=== PATIENT | male | born 1960 | race Caucasian/White ===

== ENCOUNTER 2017-01-06 01:59 | Emergency (ER) | payer OTHER ==
--- NOTE | 2017-01-06 02:44 | Emergency Department Record ---
History of Present Illness - General Chief Complaint: Cough Stated Complaint: "I THINK I HAVE BRONCHITIS" Time Seen by Provider: 01/06/17 02:26 Source: Patient Mode of Arrival: Ambulatory Limitations: No limitations - History of Present Illness Initial Comments: pt has productive green cough. has been sick with the same. no fevers. MD Complaint: Cough, Nasal congestion, Rhinorrhea Onset/Timin -: Days(s) Consistency: Getting worse Worsens With: Deep breaths Context: Sick contacts Treatments Prior to Arrival: None - Related Data Home Medications Medication Instructions Recorded Confirmed Last Taken Multivitamin [Multi-Vitamin Daily] 1 each PO DAILY tab 05/21/16 01/06/17 [place]-3 Fatty Acids/Fish Oil 1 each PO DAILY cap 05/21/16 01/06/17 01/05/17 [[place] 3 Fish Oil Softgel] Previous Rx's Medication Instructions Recorded Acetaminophen with Codeine 5 ml PO QHS #60 solution 01/06/17 [Acetaminop-Codeine 120-12 mg/5] Azithromycin [Zithromax] 250 mg PO DAILY #4 tab 01/06/17 Allergies Allergy/AdvReac Type Severity Reaction Status Date / Time No Known Allergies Allergy Unverified 11/17/16 10:19 Travel Screening - Travel/Exposure Within Last 30 Days Have you traveled within the last 30 days?: No - Travel/Exposure Within Last Year Have you traveled outside the [place] in the last year?: No - Additonal Travel Details Have you been exposed to anyone with a communicable illness?: Yes Exposure Details:: bronchitis - Travel Symptoms Symptom Screening: None Review of Systems Reviewed: No additional complaints except as noted below Constitutional: Reports: As per HPI. Denies: Chills, Fever, Malaise, Night sweats, Weakness, Weight change Eyes: Reports: As per HPI. Denies: Eye discharge, Eye pain, Photophobia, Vision change ENT: Reports: As per HPI. Denies: Congestion, Dental pain, Ear pain, Epistaxis , Hearing loss, Throat pain Respiratory: Reports: As per HPI. Denies: Cough, Dyspnea, Hemoptysis, Stridor, Wheezes Cardiovascular: Reports: As per HPI. Denies: Arrhythmia, Chest pain, Dyspnea on exertion, Edema, Murmurs, Orthopnea, Palpitations, Paroxysmal nocturnal dyspnea, Rheumatic Fever, Syncope Endocrine: Reports: As per HPI. Denies: Fatigue, Heat or cold intolerance, Polydipsia, Polyuria Gastrointestinal: Reports: As per HPI. Denies: Abdominal pain, Constipation, Diarrhea, Hematemesis, Hematochezia, Melena, Nausea, Vomiting Genitourinary: Reports: As per HPI. Denies: Dysuria, Frequency, Hematuria, Incontinence, Retention, Testicular pain, Testicular mass, Urgency Musculoskeletal: Reports: As per HPI. Denies: Arthralgia, Back pain, Gout, Joint swelling, Myalgia, Neck pain Skin: Reports: As per HPI. Denies: Bruising, Change in color, Change in hair/ nails, Lesions, Pruritus, Rash Neurological: Reports: As per HPI. Denies: Abnormal gait, Confusion, Headache, Numbness, Paresthesias, Seizure, Tingling, Tremors, Vertigo, Weakness Psychiatric: Reports: As per HPI. Denies: Anxiety, Auditory hallucinations, Depression, Homicidal thoughts, Suicidal thoughts, Visual hallucinations Hematological/Lymphatic: Reports: As per HPI. Denies: Anemia, Blood Clots, Easy bleeding, Easy bruising, Swollen glands Past Medical History - SOCIAL HISTORY Smoking Status: Never smoker Alcohol Use: Rare Drug Use: None - RESPIRATORY Hx Respiratory Disorders: No - CARDIOVASCULAR Hx Cardio Disorders: No - NEURO Hx Neuro Disorders: No - GI Hx GI Disorders: No - Hx Genitourinary Disorders: No - ENDOCRINE Hx Endocrine Disorders: No - MUSCULOSKELETAL Hx Musculoskeletal Disorders: No - PSYCH Hx Psych Problems: No - HEMATOLOGY/ONCOLOGY Hx Hematology/Oncology Disorders: No Family Medical History Any Significant Family History?: Yes Hx Cancer: Father, Mother *Cancer Comment: Breast, Mother: Bladder, Father Hx Resp Disorders: Father *Resp Comment: fibrosis Physical Exam - General General Appearance: Alert, Oriented x3, Cooperative, Mild distress - Head Head exam: Normal inspection - Eye Eye exam: Normal appearance, PERRL, EOMI Pupils: Normal accommodation - ENT ENT exam: Normal exam, Mucous membranes moist, Normal external ear exam, Normal orophraynx, TM's normal bilaterally Ear exam: Normal external inspection. negative: External canal tenderness Nasal Exam: Normal inspection. negative: Discharge, Sinus tenderness Mouth exam: Normal external inspection, Tongue normal Teeth exam: Normal inspection. negative: Dental caries Throat exam: Normal inspection. negative: Tonsillar erythema, Tonsillar exudate - Neck Neck exam: Normal inspection, Full ROM. negative: Tenderness - Respiratory Respiratory exam: Normal lung sounds bilaterally. negative: Respiratory distress - Cardiovascular Cardiovascular Exam: Regular rate, Normal rhythm, Normal heart sounds - GI/Abdominal GI/Abdominal exam: Soft, Normal bowel sounds. negative: Tenderness - Rectal Rectal exam: Deferred - exam: Deferred - Extremities Extremities exam: Normal inspection, Full ROM, Normal capillary refill. negative: Tenderness - Back Back exam: Reports: Normal inspection, Full ROM. Denies: Muscle spasm, Rash noted, Tenderness - Neurological Neurological exam: Alert, CN II-XII intact, Normal gait, Oriented X3 - Psychiatric Psychiatric exam: Normal affect, Normal mood - Skin Skin exam: Dry, Intact, Normal color, Warm Course Vital Signs 01/06/17 02:05 Temperature 97.7 F Pulse Rate 69 Respiratory 24 Rate Blood Pressure 133/70 Pulse Ox 98 Disposition Disposition: Discharge Clinical Impression: Bronchitis Disposition: Home, Self-Care Condition: (1) Good Instructions: Acute Bronchitis (ED) Additional Instructions: follow up with family doctor. return sooner if worse Prescriptions: Acetaminophen with Codeine [Acetaminop-Codeine 120-12 mg/5] 5 ml PO QHS #60 solution Azithromycin [Zithromax] 250 mg PO DAILY #4 tab Forms: Patient Portal Access
[2017-01-06] MEDS ORDERED: PROMETHAZINE W/CODEINE 10ML UD PO ONE (03:21)
[2017-01-06] MEDS ORDERED: AZITHROMYCIN 500 MG TABLET PO SCH (10:00)
== END 2017-01-06 03:46 | disposition home or self-care (01) ==
LOC: ER 01:59
DX: J20.9 Acute bronchitis, unspecified (principal)
CPT/HCPCS: 71020; 99283

== ENCOUNTER 2017-10-01 12:08 | Day surgery (SDC) | payer OTHER ==
[2017-10-01] MEDS ORDERED: LIDOCAINE 2% MDV (20MG/ML) 20ML VIAL IV ONE (12:09)
[2017-10-01] MEDS ORDERED: PROPOFOL 10 MG/ML VIAL IV ONE (12:09)
[2017-10-01] MEDS ORDERED: FENTANYL PF 100MCG/2ML VIAL IV ONE (12:09)
--- NOTE | 2017-10-05 09:00 | Operative Note ---
DATE OF SURGERY: 10/01/2017 SURGEON: Marycruz Le MD OPERATION: ESOPHAGOGASTRODUODENOSCOPY. INDICATIONS: Dysphagia. POSTOPERATIVE DIAGNOSES: 1. Schatzki ring. 2. Gastritis. 3. Normal duodenum. ANESTHESIA: Sedation is per Anesthesia. Pulse oximetry was monitored throughout the procedure to maintain O2 saturation of 90% or greater. Supplemental oxygen was administered via nasal cannula. Cardiac and vital signs were monitored throughout the duration of the procedure, and they were stable. The procedure of esophagogastroduodenoscopy and risks and benefits of the procedure, including the risk of bleeding and perforation, among others, were explained to the patient who voiced understanding and agreed to have the procedure done. Physical examination was performed, and the patient was found stable for sedation. PROCEDURE: The patient was placed in the left lateral position. Sedation was initiated. A plastic bite block was inserted into the oral cavity. The Olympus [id number] gastroscope was introduced into the oral cavity and advanced to the proximal esophagus without difficulty. The esophageal mucosa was carefully examined upon introduction of the gastroscope. The proximal and mid esophageal mucosa with no lesions noted. At the GE junction was a wide lumen stricture that was noted consistent with Schatzki ring. The gastroscope was then advanced into the stomach, and surveillance of the stomach revealed mild erythema involving the gastric body and antrum but no ulcers were noted. The gastroscope was then advanced to the descending duodenum without difficulty. The duodenal bulb and descending duodenum appeared normal. The gastroscope was then withdrawn into the stomach and retroflexion was performed. There were no other lesions noted. The gastroscope was then straightened and withdrawn while carefully examining the gastric and esophageal mucosa. No other lesions noted. Multiple gastric and mid distal esophageal biopsies were obtained. The patient remained with stable vital signs. Ferreira dilator size [id number] was then passed into the stomach with mild resistance. The Ferreira dilator was then withdrawn and the procedure was terminated. The patient tolerated the procedures well without any immediate complications. He remained with stable vital signs and was transferred to the recovery room. RECOMMENDATIONS: 1. The patient is to continue on his proton pump inhibitors. 2. I will be happy to see him back in the office as needed. Thank you for allowing me to participate in the care of your patient. CC: Salina DUFF
== END 2017-10-01 14:35 | disposition home or self-care (01) ==
LOC: HOP 12:08
PROVIDERS: ATTEND Internal Medicine Gastroenterology
DX: R13.10 Dysphagia, unspecified (principal); K22.2 Esophageal obstruction; K29.70 Gastritis, unspecified, without bleeding
CPT/HCPCS: 43235; 00731; J3010